=== PATIENT | male | born 1975 | race Caucasian/White ===

== ENCOUNTER 2017-12-23 23:20 | Emergency (ER) | payer SELFPAY ==
[~2017-12-23] VITALS: Ht 170.2 cm; Wt 86.2 kg
[2017-12-23 23:24] VITALS: BP 218/107; PULSE 64; RESP 16; TEMP 97.9; O2SAT 98
[2017-12-23] MEDS ORDERED: SODIUM CHLOR 0.9% 1000 ML INJ 1,000 ML IV SCH (23:44)
[2017-12-23] MEDS ORDERED: MORPHINE SULFATE 4 MG/ML INJ IV PUSH ONE (23:45)
[2017-12-23] MEDS ORDERED: KETOROLAC TROMETHAMINE 30 MG/ML (IVP) VIAL IVP ONE (23:45)
[2017-12-23] MEDS ORDERED: ONDANSETRON HCL 4 MG/2 ML VIAL IVP ONE (23:45)
[2017-12-23] MEDS ORDERED: SODIUM CHLORIDE 0.9% FLUSH 10 ML FLUSH IV FLUSH PRN ×2 (23:45)
[2017-12-23 23:48] LABS: AUTOMATED NEUTROPHIL # 6.5 TH/MM3 (1.8-7.7); BASOPHIL # 0.1 TH/MM3 (0-0.2); BASOPHIL % 0.8 % (0.0-2.0); EOSINOPHIL # 0.8 TH/MM3 (0-0.4); EOSINOPHIL % 5.8 % (0.0-4.0); HEMATOCRIT 45.8 % (39.0-51.0); HEMOGLOBIN 15.5 GM/DL (13.0-17.0); LYMPH % 35.4 % (9.0-44.0); LYMPHOCYTE # 4.8 TH/MM3 (1.0-4.8); MEAN CELL VOLUME 86.1 FL (80.0-100.0); MEAN CORPUSCULAR HEMOGLOBIN 29.1 PG (27.0-34.0); MEAN CORPUSCULAR HGB CONC 33.8 % (32.0-36.0); MEAN PLATELET VOLUME 10.8 FL (7.0-11.0); MONO % 10.2 % (0.0-8.0); MONOCYTE # 1.4 TH/MM3 (0-0.9); NEUT % 47.8 % (16.0-70.0); PLATELET COUNT 316 TH/MM3 (150-450); RED BLOOD COUNT 5.32 MIL/MM3 (4.50-5.90); RED CELL DISTRIBUTION WIDTH 15.4 % (11.6-17.2); WHITE BLOOD COUNT 13.6 TH/MM3 (4.0-11.0)
[2017-12-23 23:55] VITALS: BP 176/92; PULSE 55; RESP 20; O2SAT 97
[2017-12-23 23:55] LABS: CHLORIDE 106 MEQ/L (98-107); SODIUM (NA) 137 MEQ/L (136-145)
[2017-12-23 23:58] LABS: CALCIUM 9.1 MG/DL (8.5-10.1)
[2017-12-23 23:59] LABS: ALBUMIN 3.6 GM/DL (3.4-5.0); BICARBONATE 24.4 MEQ/L (21.0-32.0); BLOOD UREA NITROGEN 17 MG/DL (7-18); GLUCOSE,RANDOM 118 MG/DL (74-106)
[2017-12-24 00:01] LABS: ALT (GPT) 347 U/L (12-78); AST (GOT) 52 U/L (15-37); CREATININE 0.82 MG/DL (0.60-1.30); GLOMERULAR FILTRATION RATE 104 ML/MIN (>89)
[2017-12-24 00:03] LABS: TOTAL BILIRUBIN ADULT 0.7 MG/DL (0.2-1.0); TOTAL PROTEIN 8.5 GM/DL (6.4-8.2)
[2017-12-24 00:04] LABS: ALKALINE PHOSPHATASE 126 U/L (45-117)
--- NOTE | 2017-12-24 00:27 | RADRPT ---
EXAM DATE/TIME: 12/24/2017 00:05 [place] COMPARISON: No previous studies available for comparison. INDICATIONS : Right sided abdomen pain with nausea and vomiting. ORAL CONTRAST: No oral contrast ingested. RADIATION DOSE: 15.94 CTDIvol (mGy) MEDICAL HISTORY : None SURGICAL HISTORY : None. ENCOUNTER: Initial ACUITY: 1 day PAIN SCALE: 9/10 LOCATION: Right abdomen TECHNIQUE: Volumetric scanning of the abdomen and pelvis was performed. Using automated exposure control and ad justment of the mA and/or kV according to patient size, radiation dose was kept as low as reasonably achievable to obtain optimal diagnostic quality images. DICOM format image data is available electro nically for review and comparison. FINDINGS: LOWER LUNGS: The visualized lower lungs are clear. LIVER: Homogeneous density without lesion. There is no dilation of the biliary tree. No calcified gallston es. SPLEEN: Normal size without lesion. PANCREAS: Within normal limits. KIDNEYS: Normal in size and shape. There is no mass, stone, or hydronephrosis. ADRENAL GLANDS: Within normal limits. VASCULAR: There is no aortic aneurysm. BOWEL/MESENTERY: The stomach, small bowel, and colon demonstrate no acute abnormality. There is no free intraperitone al air or fluid. ABDOMINAL WALL: Within normal limits. RETROPERITONEUM: There is no lymphadenopathy. BLADDER: No wall thickening or mass. REPRODUCTIVE: Within normal limits. INGUINAL: There is no lymphadenopathy or hernia. MUSCULOSKELETAL: Within normal limits for patient age. CONCLUSION: Normal examination. There is mild prominence of the right renal collecting system but no evidence of significant perinephric stranding or any definite renal calculus Thiago Cooper MD on December 24, 2017 at 0:25 Board Certified Radiologist. This report was verified electronically.
[2017-12-24 00:50] VITALS: BP 161/93; PULSE 48; RESP 20; O2SAT 94
[2017-12-24 01:09] LABS: BILIRUBIN, URINE NEG (NEG); BLOOD, URINE LARGE (NEG); GLUCOSE,URINE NEG (NEG); KETONE, URINE TRACE mg/dL (NEG); NITRITE,URINE NEG (NEG); URINE LEUKOCYTE ESTERASE NEG (NEG)
[2017-12-24 01:13] LABS: URINE COLOR RED (YELLW/STRAW)
--- NOTE | 2017-12-24 01:14 | PD ---
HPI Chief Complaint: GI Complaint Time Seen by Provider: 23:32 Travel History International Travel<30 days: No Contact w/Intl Traveler<30days: No Traveled to known affect area: No History of Present Illness HPI Is a 42-year-old man presents emerged from quitting of severe right flank abdominal pain. States it started a couple hours ago. Never had it before. Associate with nausea and vomiting. No urinary symptoms. No history of previous similar symptoms. Denies any past medical history. No other complaints. History Past Medical History Medical History: Denies Significant Hx Tetanus Vaccination: Unknown Social History Alcohol Use: Yes (SOCIAL DRINKER) Tobacco Use: Yes (1 PPD) Allergies-Medications (Allergen,Severity, Reaction): Coded Allergies: Penicillins (Verified Allergy, Severe, childhood , 12/24/17) Reported Meds & Prescriptions Reported Meds & Active Scripts Active No Active Prescriptions or Reported Medications Review of Systems Except as stated in HPI: all other systems reviewed are Neg Physical Exam Narrative GENERAL: 42-year-old man, appears uncomfortable, holding his right flank. Riding. SKIN: Focused skin assessment warm/dry. HEAD: Atraumatic. Normocephalic. EYES: Pupils equal and round. No scleral icterus. No injection or drainage. ENT: No nasal bleeding or discharge. Mucous membranes pink and moist. NECK: Trachea midline. No JVD. CARDIOVASCULAR: Regular rate and rhythm. No murmur appreciated. RESPIRATORY: No accessory muscle use. Clear to auscultation. Breath sounds equal bilaterally. GASTROINTESTINAL: Abdomen is flat and soft. Minimal right-sided tenderness to palpation. No rebound or guarding. MUSCULOSKELETAL: No obvious deformities. No edema peer NEUROLOGICAL: Awake and alert. No obvious cranial nerve deficits. Motor grossly within normal limits. Normal speech. PSYCHIATRIC: Appropriate mood and affect; insight and judgment normal. Data Data Last Documented VS Vital Signs Date Time Temp Pulse Resp B/P (MAP) Pulse Ox O2 Delivery O2 Flow Rate FiO2 12/23/17 23:55 55 20 176/92 (120) 97 12/23/17 23:24 97.9 Orders Orders Complete Blood Count With Diff (12/23/17 23:36) Comprehensive Metabolic Panel (12/23/17 23:36) Lipase (12/23/17 23:36) Urinalysis - C+S If Indicated (12/23/17 23:36) Iv Access Insert/Monitor (12/23/17 23:36) Sodium Chloride 0.9% Flush (Ns Flush) (12/23/17 23:45) Ct Abd/Pel W/O Iv Contrast (12/23/17 23:44) Morphine Inj (Morphine Inj) (12/23/17 23:45) Ondansetron Inj (Zofran Inj) (12/23/17 23:45) Sodium Chlor 0.9% 1000 Ml Inj (Ns 1000 M (12/23/17 23:44) Sodium Chloride 0.9% Flush (Ns Flush) (12/23/17 23:45) Ketorolac Inj (Toradol Inj) (12/23/17 23:45) Labs Laboratory Tests Test 12/23/17 23:35 12/24/17 01:05 White Blood Count 13.6 TH/MM3 Red Blood Count 5.32 MIL/MM3 Hemoglobin 15.5 GM/DL Hematocrit 45.8 % Mean Corpuscular Volume 86.1 FL Mean Corpuscular Hemoglobin 29.1 PG Mean Corpuscular Hemoglobin Concent 33.8 % Red Cell Distribution Width 15.4 % Platelet Count 316 TH/MM3 Mean Platelet Volume 10.8 FL Neutrophils (%) (Auto) 47.8 % Lymphocytes (%) (Auto) 35.4 % Monocytes (%) (Auto) 10.2 % Eosinophils (%) (Auto) 5.8 % Basophils (%) (Auto) 0.8 % Neutrophils # (Auto) 6.5 TH/MM3 Lymphocytes # (Auto) 4.8 TH/MM3 Monocytes # (Auto) 1.4 TH/MM3 Eosinophils # (Auto) 0.8 TH/MM3 Basophils # (Auto) 0.1 TH/MM3 CBC Comment DIFF FINAL Differential Comment Blood Urea Nitrogen 17 MG/DL Creatinine 0.82 MG/DL Random Glucose 118 MG/DL Total Protein 8.5 GM/DL Albumin 3.6 GM/DL Calcium Level 9.1 MG/DL Alkaline Phosphatase 126 U/L Aspartate Amino Transf (AST/SGOT) 52 U/L Alanine Aminotransferase (ALT/SGPT) 347 U/L Total Bilirubin 0.7 MG/DL Sodium Level 137 MEQ/L Potassium Level 3.6 MEQ/L Chloride Level 106 MEQ/L Carbon Dioxide Level 24.4 MEQ/L Anion Gap 7 MEQ/L Estimat Glomerular Filtration Rate 104 ML/MIN Lipase 168 U/L Urine Color RED Urine Turbidity CLOUDY Urine pH 5.0 Urine Specific [place] 1.025 Urine Protein 100 mg/dL Urine Glucose (UA) NEG mg/dL Urine Ketones TRACE mg/dL Urine Occult Blood LARGE Urine Nitrite NEG Urine Bilirubin NEG Urine Urobilinogen 0.2 MG/DL Urine Leukocyte Esterase NEG Urine RBC INNUM /hpf Urine WBC 3-5 /hpf Urine Squamous Epithelial Cells 0-5 /hpf Urine Bacteria NONE /hpf Microscopic Urinalysis Comment CULT NOT INDICATED MDM Medical Decision Making Medical Screen Exam Complete: Yes Emergency Medical Condition: Yes Interpretation(s) LABS: CBC is remarkable for mild leukocytosis. CMP is remarkable for elevated liver enzymes. Lipase is normal. UA with hematuria. CT scan with no definite abnormalities. Prominent the right renal collecting system, but no definite stones per Differential Diagnosis Renal lithiasis, cholecystitis, pancreatitis, UTI, other Narrative Course Medical decision making INITIAL: 42-year-old man presents to the emergency department with severe right flank pain, abrupt onset, suggestive of kidney stone. Labs show elevated liver enzymes, patient states he has no history of hepatitis that he knows of. CT scan shows some fullness in the right renal collecting system but no definite stone. Will check urine. Reassess. Patient much improved now. Diagnosis Primary Impression: Renal lithiasis Additional Impression: Abnormal liver enzymes Additional Instructions: Take medication as prescribed. The Zofran as needed for nausea or vomiting. Follow with your primary doctor to follow-up on your abnormal liver tests. Return to the emergency department for any new or worsening symptoms. Med/Other Pt SpecificInfo: Prescription(s) given Scripts Ondansetron Odt (Zofran Odt) 4 Mg Tab 4 MG SL Q8HR Y for Nausea/Vomiting, #12 TAB 0 Refills Prov: Thiago Cornejo MD 12/24/17 Oxycodone-Acetaminophen (Percocet) 5-325 mg Tab 1-2 TAB PO Q6H Y for PAIN, #6 TAB 0 Refills Prov: Thiago Cornejo MD 12/24/17 Naproxen (Naproxen) 500 Mg Tab 500 MG PO BID for 10 Days, #20 TAB 0 Refills Prov: Thiago Cornejo MD 12/24/17 Disposition: 01 DISCHARGE HOME Condition: Stable Thiago Cornejo MD Dec 24, 2017 01:14
[2017-12-24 01:17] LABS: RBC, URINE INNUM /hpf (0-3); SQUAMOUS EPITHELIAL CELL URINE 0-5 /hpf (0-5)
[2017-12-24] MEDS ORDERED: PERC5TAB12 PO (01:30)
[2017-12-24] MEDS ORDERED: ZOFR4TAB3 SL (01:30)
[2017-12-24] MEDS ORDERED: NAPR500T2 PO (01:30)
[2017-12-24 01:53] VITALS: BP 134/65; PULSE 58; RESP 20; O2SAT 96
== END 2017-12-24 02:00 | disposition home or self-care (01) ==
LOC: PHED 23:20
DX: N20.0 Calculus of kidney (principal); R94.5 Abnormal results of liver function studies; D72.829 Elevated white blood cell count, unspecified; R31.9 Hematuria, unspecified; R11.2 Nausea with vomiting, unspecified; F17.200 Nicotine dependence, unspecified, uncomplicated; Z88.0 Allergy status to penicillin
CPT/HCPCS: 74176; 80053; 81001; 83690; 85025; 96361; 96374; 96375; 99284; J1885; J2270; J2405; J7030